=== PATIENT | female | born 1940 | race Caucasian/White ===

== ENCOUNTER 2018-12-11 19:21 | Observation (INO) | payer MEDICARE, OTHER ==
[~2018-12-11] VITALS: Ht 165.1 cm; Wt 90.2 kg
[2018-12-11] MEDS ORDERED: MELA5CAP2 PO ×2 (19:52→22:55)
[2018-12-11] MEDS ORDERED: AMIT25TA PO ×2 (19:52→22:55)
[2018-12-11] MEDS ORDERED: FOLI400T PO (19:52)
[2018-12-11] MEDS ORDERED: ATOR40TA75 PO ×2 (19:52→22:55)
[2018-12-11] MEDS ORDERED: CVS400CA PO (19:52)
[2018-12-11] MEDS ORDERED: B-122500 PO (19:52)
[2018-12-11] MEDS ORDERED: VESI5TAB2 PO ×2 (19:52→22:55)
[2018-12-11] MEDS ORDERED: BRIL90TA PO ×2 (19:52)
[2018-12-11] MEDS ORDERED: ALLO100T PO ×2 (19:52→22:55)
[2018-12-11] MEDS ORDERED: GINK1CAP PO (19:52)
[2018-12-11] MEDS ORDERED: TOPR50TA PO (19:52)
[2018-12-11] MEDS ORDERED: ASPI81CH33 PO (19:52)
[2018-12-11] MEDS ORDERED: TORS10TA3 PO (19:52)
[2018-12-11 20:05] LABS: BASO % 0.4 % (0.0-1.0); EOS # 0.4 10^3/uL (0.0-0.50); EOS % 5.6 % (0.0-3.0); HEMATOCRIT 35.8 % (36.0-47.0); LYMPH # 1.3 10^3/uL (1.5-4.5); LYMPH % 17.9 % (24.0-44.0); MEAN CORPUSCULAR HEMOGLOBIN 34.2 pg (27.0-33.0); MEAN CORPUSCULAR HGB CONC 33.5 g/dl (32.0-36.5); MONO # 0.7 10^3/uL (0.0-0.8); MONO % 10.4 % (0.0-5.0); NEUTROPHILS # 4.6 10^3/uL (1.8-7.7); PLATELET COUNT, AUTOMATED 203 10^3/uL (150-450); RED BLOOD COUNT 3.51 10^6/uL (4.00-5.40); WHITE BLOOD COUNT 7.1 10^3/uL (4.0-10.0)
[2018-12-11] MEDS ORDERED: ASPIRIN 81 MG CHEW TABLET PO ONE (20:15)
[2018-12-11] MEDS ORDERED: METOPROLOL SUCC (TopROL XL) 50MG **XL** TAB PO ONE (20:15)
[2018-12-11 20:21] LABS: INR 0.92; PROTHROMBIN TIME 12.1 SECONDS (11.8-14.0)
[2018-12-11 20:47] LABS: ALBUMIN 3.4 GM/DL (3.2-5.2); ALT/SGPT 22 U/L (12-78); BILIRUBIN,TOTAL 0.3 MG/DL (0.2-1.0); BLOOD UREA NITROGEN 26 MG/DL (7-18); CARBON DIOXIDE LEVEL 31 MEQ/L (21-32); CHLORIDE LEVEL 100 MEQ/L (98-107); CK-MB VALUE MASS 1.2 NG/ML (<3.6); CPK CREATINE PHOSPHOKINASE 70 U/L (26-192); CREATININE FOR GFR 1.82 MG/DL (0.55-1.30); GLOMERULAR FILTRATION RATE 28.7 (>39); GLUCOSE, FASTING 99 MG/DL (70-100); LIPASE 120 U/L (73-393); MB/CK RELATIVE INDEX 1.71 (< OR =4); POTASSIUM SERUM 4.4 MEQ/L (3.5-5.1); SODIUM LEVEL 138 MEQ/L (136-145); TOTAL PROTEIN 6.5 GM/DL (6.4-8.2); TROPONIN I < 0.02 NG/ML (< 0.10)
[2018-12-11] MEDS ORDERED: ALLOPURINOL 100 MG TAB PO SCH (21:00)
[2018-12-11] MEDS ORDERED: SOLIFENACIN 5 MG TAB PO SCH (21:00)
[2018-12-11] MEDS ORDERED: AMITRIPTYLINE 25 MG TAB PO SCH (21:00)
[2018-12-11 21:03] LABS: D-DIMER QUANT 617.19 ng/ml (<500)
[2018-12-11] MEDS ORDERED: hydrALAZINE INJ 20 MG/ML VIAL IV ONE (22:15)
--- NOTE | 2018-12-11 22:27 | HPEPDOC ---
[facility] Medical History & Physical Date of Admission Dec 11, 2018 Date of Service: Dec 11, 2018 Other Provider PCP & Sensitizer are in [place] Attending Physician: MACHELLE ROBERTS MD History and Physical TIME OF SERVICE 10:50 PM CHIEF COMPLAINT not feeling well HISTORY OF PRESENT ILLNESS Ms. Headley is a 78-year-old female who presents with complaints of feeling well for "quite a while". Specifically, she has been having nonradiating mid-chest pressure that is worse with lying down and better with standing up for a while. Associated symptoms include jaw pain and shoulder pain. Last night she noticed her blood pressure was very high and she had problems sleeping. Whenever she tried to lie down flat, she felt like she was suffocating. She takes metoprolol instead of nitroglycerin whenever she has chest pain; her fence laborer instructed her to do this rather than take nitro because it gave her headaches. Today she came in evaluation because she developed a headache, after taking her medications at 11 PM. She denies having lower extremity edema. The symptoms she has today are different from when she had her heart attack. REVIEW OF SYSTEMS: 12 point review of systems negative except as listed in HPI PAST MEDICAL/PAST SURGICAL HISTORY: 1. Chronic Hypertension 2 Chronic CAD is post stent placement 3 CKD stage unknown. 4. Pacemaker placement for bradycardia. 5 Status post appendectomy 6 Status post left knee arthroscopic surgery SOCIAL HISTORY: Quit smoking Resides in [place] and is visiting family and friends in town FAMILY HISTORY: CVA ALLERGIES: Please see below. HOME MEDICATIONS: Please see below. PHYSICAL EXAMINATION: VITAL SIGNS: Temperature 98.6, pulse 81, respiratory 20, blood pressure 198/86, pulse oximetry 98% on room air GENERAL APPEARANCE: Obese, well-developed, not in apparent distress HEENT: Normocephalic, atraumatic, mucous members moist and pink CARDIOVASCULAR: Regular rate and rhythm, no murmurs, rubs or gallops, radial p ulses are intact, external ears are warm and well perfused, there is no lower extremity edema LUNGS: Clear consultation bilaterally on room air. There is no cough ABDOMEN: Positive bowel sounds, abdomen is soft and nontender on palpation. MUSCULOSKELETAL: Range of motion is intact in all 4 extremities NEUROLOGICAL: Cranial nerves 2-12 are grossly intact. Speech is not dysarthric PSYCHIATRIC: Alert and oriented to person, place and time, able to understand and follow commands LABORATORY DATA: CBC is unremarkable. Chemistry is remarkable for a BUN of 26, creatinine 1.2, and GFR of 28 D-dimer 617 IMAGING: Chest x-ray final read is pending, but there is mild congestion of the lung bases and a pacemaker in place MICROBIOLOGY: Please see below. ASSESSMENT: Ms. Headley is a 78-year-old [place] resident with a past medical history of chronic CAD, hypertension, CKD, and pacemaker placement for bradycardia who is admitted for evaluation of chest pain likely secondary to uncontrolled hy pertension. PLAN: 1. Chest pain Likely due to hypertensive urgency. EKG shows ventricular paced rhythm Troponin within normal limits. She received Aspirin in he ED Plan: Admit to GMS/telemetry / ASA, Statin + Acetaminophen & Nitro PRN for chest pain / follow-up 2 more troponins, BNP, Echo lipid panel 2. Hypertensive urgency. Plan: resume home meds plus IV pressor 5 mg every 12 hours for systolic blood pressure greater than 160 3. Elevated d-dimer Age-adjusted d-dimer is 10 x age, which is 771 for this lady Plan: No intervention necessary 4. KYLIE versus CKD Plan: 500ml bolus /Follow-up Ulytes for FENa/FEUrea & BMP in the morning avoid nephrotoxins 5. Chronic CAD Plan: resume home meds DVT prophylaxis with SCDs Disposition pending clinical course Laboratory Data CBC/BMP Laboratory Tests 12/11/18 19:58 Red Blood Count 3.51 L, Mean Corpuscular Volume 102.0 H, Mean Corpuscular Hemoglobin 34.2 H, Mean Corpuscular Hemoglobin Concent 33.5, Red Cell Dis tribution Width 14.3, Neutrophils (%) (Auto) 65.0, Lymphocytes (%) (Auto) 17.9 L, Monocytes (%) (Auto) 10.4 H, Eosinophils (%) (Auto) 5.6 H, Basophils (%) (Auto) 0.4, Neutrophils # (Auto) 4.6, Lymphocytes # (Auto) 1.3 L, Monocytes # (Auto) 0.7, Eosinophils # (Auto) 0.4, Basophils # (Auto) 0.0, Calcium Level 9.0, Aspartate Amino Transf (AST/SGOT) 19, Alanine Aminotransferase (ALT/SGPT) 22, Total Creatine Kinase 70, Alkaline Phosphatase 86, Total Bilirubin 0.3, Total Protein 6.5, Albumin 3.4 Home Medications Scheduled Allopurinol (Allopurinol) 100 Mg Tablet, 100 MG PO QHS Amitriptyline HCl (Amitriptyline HCl) 25 Mg Tablet, 25 MG PO QHS Aspirin (Aspirin EC) 81 Mg Tablet.dr, 81 MG PO DAILY Atorvastatin Calcium (Atorvastatin Calcium) 40 Mg Tablet, 40 MG PO QHS Melatonin (Melatonin) 5 Mg Capsule, 5 MG PO QHS Metoprolol Succinate (Metoprolol Succinate) 50 Mg Tab.er.24h, 50 MG PO QHS PATIENT STATES CAN TAKE SECOND DOSE DURING NIGHT IF BP IS HIGH Metoprolol Succinate (Metoprolol Succinate) 25 Mg Tab.er.24h, 25 MG PO BID Solifenacin Succinate (Vesicare) 5 Mg Tablet, 5 MG PO QHS Ticagrelor Base (Brilinta) 90 Mg Tablet, 90 MG PO BID Torsemide (Torsemide) 20 Mg Tablet, 20 MG PO DAILY Scheduled PRN Lidocaine (Lidocaine) 5% Adh..patch, 1 PATCH TOP DAILY PRN for PAIN USES ON RIGHT HIP NEEDED FOR PAIN Allergies Coded Allergies: codeine (Verified Allergy, Unknown, 12/11/18) A-FIB/CHADSVASC A-FIB History Current/History of A-Fib/PAF?: No Current PO Anticoag Therapy: No MACHELLE ROBERTS MD Dec 11, 2018 22:27
[2018-12-11] MEDS ORDERED: ACETAMINOPHEN 500 MG TAB PO PRN (22:30)
[2018-12-11] MEDS ORDERED: METOPROLOL 5 MG/5 ML VIAL IV PRN (22:30)
[2018-12-11] MEDS ORDERED: NS 500 ML IV ONE (22:30)
[2018-12-11] MEDS ORDERED: LIDO5TD TOP (22:55)
[2018-12-11] MEDS ORDERED: TORS20TA2 PO (22:55)
[2018-12-11] MEDS ORDERED: ASPI-161 PO (22:55)
[2018-12-11] MEDS ORDERED: METO1TAB7 PO (22:55)
[2018-12-12 00:07] LABS: CHOLESTEROL LEVEL 141 MG/DL (<200); CHOLESTEROL RISK RATIO 2.203 (<5); HDL CHOLESTEROL 64 MG/DL (>40); LDL CHOLESTEROL 28 MG/DL (<100); NON-HDL-C 77 MG/DL; NT-PRO BNP 4834 PG/ML (<450); TRIGLYCERIDES LEVEL 243 MG/DL (<150)
[2018-12-12 01:22] VITALS: BP 146/66
[2018-12-12] MEDS: NITROGLYCERIN 0.4 MG SUBL TABLET SL PRN ×2 (01:23→02:24)
[2018-12-12 01:25] VITALS: BP 148/80; PULSE 69
[2018-12-12 01:41] LABS: APPEARANCE, URINE CLEAR (CLEAR); BACTERIA, URINE AUTO 1+ (NEGATIVE); BILIRUBIN, URINE AUTO NEGATIVE (NEGATIVE); BLOOD, URINE BLOOD NEGATIVE (NEGATIVE); COLOR, URINE YELLOW (YELLOW); GLUCOSE, URINE (UA) AUTO NEGATIVE (NEGATIVE); KETONE, URINE AUTO NEGATIVE (NEGATIVE); LEUKOCYTE ESTERASE, URINE AUTO TRACE (NEGATIVE); NITRITE, URINE AUTO NEGATIVE (NEGATIVE); PROTEIN, URINE AUTO NEGATIVE (NEGATIVE); RBC, URINE AUTO 2 /HPF (0-3); SPECIFIC GRAVITY URINE AUTO 1.008 (1.002-1.035); SQUAMOUS EPITHELIAL CELL UR AU 1 /HPF (0-6); UROBILINOGEN, URINE AUTO 0.2 mg/dL (0.0-2.0); WBC, URINE AUTO 3 /HPF (0-3)
[2018-12-12 02:05] LABS: CREATININE,RANDOM URINE 61.5 MG/DL; SODIUM,RANDOM URINE 39 MEQ/L; UREA NITROGEN RANDOM URINE 377 MG/DL
[2018-12-12 02:24] VITALS: BP 144/76
[2018-12-12] MEDS ORDERED: LIDOCAINE 5% (LIDODERM) PATCH TOP PRN (03:15)
[2018-12-12 05:37] LABS: HEMATOCRIT 35.2 % (36.0-47.0); HEMOGLOBIN 11.6 g/dl (12.0-15.5); MEAN CORPUSCULAR HEMOGLOBIN 33.8 pg (27.0-33.0); MEAN CORPUSCULAR VOLUME 102.6 fl (80.0-96.0); PLATELET COUNT, AUTOMATED 181 10^3/uL (150-450); RED BLOOD COUNT 3.43 10^6/uL (4.00-5.40); WHITE BLOOD COUNT 6.9 10^3/uL (4.0-10.0)
[2018-12-12 05:57] LABS: BLOOD UREA NITROGEN 28 MG/DL (7-18); CALCIUM LEVEL 9.3 MG/DL (8.8-10.2); CARBON DIOXIDE LEVEL 27 MEQ/L (21-32); CHLORIDE LEVEL 105 MEQ/L (98-107); CREATININE FOR GFR 1.58 MG/DL (0.55-1.30); GLOMERULAR FILTRATION RATE 33.8 (>39); GLUCOSE, FASTING 114 MG/DL (70-100); POTASSIUM SERUM 3.8 MEQ/L (3.5-5.1); SODIUM LEVEL 138 MEQ/L (136-145); TROPONIN I < 0.02 NG/ML (< 0.10)
--- NOTE | 2018-12-12 07:08 | ECGEPIP ---
[facility] - ED Test Date: 2018-12-11 Pat Name: BEAR LYNN Department: Room: [place] [address] Gender: Female Instructor Bridge: MIHIR : 1940 Requested By: EZEQUIEL Robert Order Number: [id number] Reading MD: Rehan Power Measurements Intervals [place] Rate: 67 P: 50 CA: 270 QRS: -64 QRSD: 171 T: 110 QT: 445 QTc: 472 Interpretive Statements ELECTRONIC VENTRICULAR PACEMAKER NO PRIORS FOR COMPARISON Electronically Signed on 12-12-2018 7:08:20 EDT by Rehan Power
[2018-12-12] MEDS ORDERED: SLF 3 ML SYR IV PRN (08:15)
--- NOTE | 2018-12-12 08:28 | REP ---
Portable chest x-ray: Single view. History: Chest pain. No comparison study. Findings: A bipolar pacemaker is seen in the right heart via the left side. EKG electrodes are noted. There is no evidence of pleural effusion or pulmonary edema. Pulmonary vasculature is not increased. Heart is not felt to be enlarged. Impression: Pacemaker in place. Otherwise no acute disease. Electronically Signed by Guanakito Nick MD 12/12/2018 08:20 A
[2018-12-12 08:44] VITALS: BP 150/80
[2018-12-12] MEDS ORDERED: TICAGRELOR 90 MG TABLET (BRILINTA) PO SCH (09:00)
[2018-12-12] MEDS ORDERED: ATORVASTATIN 20 MG TAB PO SCH (09:00)
[2018-12-12] MEDS ORDERED: ASPIRIN 81 MG CHEW TABLET PO SCH (09:00)
[2018-12-12] MEDS ORDERED: METOPROLOL SUCC *XL* 25MG TAB (TopROL *XL*) PO SCH (09:00)
[2018-12-12] MEDS ORDERED: TORSEMIDE 20 MG TAB PO SCH (09:00)
[2018-12-12] MEDS ORDERED: METO1TAB32 PO (11:13)
--- NOTE | 2018-12-12 13:29 | DS.PDOC ---
Discharge Summary General Date of Admission Dec 11, 2018 at 19:22 Date of Discharge 12/12/2018 Attending Physician: BART GARCIA MD Discharge Summary PROCEDURES PERFORMED DURING STAY: None. ADMITTING DIAGNOSES: 1. Chest pain Hypertensive emergency. DISCHARGE DIAGNOSES: 1. Chest pain ,Hypertensive emergency, hypertension, permanent pacemaker placement. COMPLICATIONS/CHIEF COMPLAINT: Hypertensive Urgency. HISTORY OF PRESENT ILLNESS: Ms. Headley is a 78-year-old female who presents with complaints of feeling well for "quite a while". Specifically, she has been having mid nonradiating chest pressure that is worse with lying down and better with standing up for a while. Associated symptoms include jaw pain and shoulder pain. Last night she noticed her blood pressure is very high and she had problems sleeping. Whenever she tried to lie down flat. She felt like she was suffocating. She takes metoprolol instead of nitroglycerin whenever she has chest pain per her wool brusher's instructions. Today she came in evaluation because she developed a headache, after her medications at 11 PM. Other system symptoms include the sensation of feeling bloated. She denies having lower extremity edema reports that these symptoms are different from when she had her heart attack.. HOSPITAL COURSE: [Patient was admitted with the diagnosis of chest pain, most likely secondary to hypertensive emergency. Patient was started on metoprolol IV and he responded very well. Patient was started on metoprolol 25 mg by mouth twice a day on discharge. Patient's blood pressure is at her baseline between 140 and 150 systolic pressure,. Troponins 2 negative. Further workup,She'll get it done with her wool brusher at [place] DISCHARGE MEDICATIONS: Please see below. ALLERGIES: Please see below. PHYSICAL EXAMINATION ON DISCHARGE: VITAL SIGNS: Please see below. GENERAL: Within normal limits HEENT: PERRLA Regular muscles intact NECK: Supple CARDIOVASCULAR EXAMINATION: S1, S2, regular RESPIRATORY EXAMINATION: Clear to A&P ABDOMINAL EXAMINATION: , Soft, nontender, bowel sound present EXTREMITIES: No clubbing, Cyanosis, edema SKIN: Normal NEUROLOGICAL EXAMINATION: . No focal motor or sensory deficit PSYCHIATRIC EXAMINATION: Normal LABORATORY DATA: Please see below. IMAGING: Chest x-ray is normal PROGNOSIS: Good ACTIVITY: As tolerated. DIET: As tolerated DISCHARGE PLAN: Hollow with your wool brusher at [place] in one week DISPOSITION: 01 Home, Self-Care. DISCHARGE INSTRUCTIONS: 1. As per discharge instructions. ITEMS TO FOLLOWUP ON ON OUTPATIENT: 1. With cardiology in one week. DISCHARGE CONDITION: Stable. TIME SPENT ON DISCHARGE: 25 minutes. Vital Signs/I&Os Vital Signs Date Time Temp Pulse Resp B/P (MAP) Pulse Ox O2 Delivery O2 Flow Rate FiO2 12/12/18 08:44 97.4 61 17 150/80 (103) 96 12/12/18 00:36 Room Air I&O- Last 24 Hours up to 6 AM 12/12/18 06:00 Intake Total 860 ml Output Total 450 ml Balance 410 ml Laboratory Data Labs 24H Laboratory Tests 2 12/11/18 19:58: Immature Granulocyte % (Auto) 0.7, White Blood Count 7.1, Red Blood Count 3.51L, Hemoglobin 12.0, Hematocrit 35.8L, Mean Corpuscular Volume 102.0H, Mean Corpuscular Hemoglobin 34.2H, Mean Corpuscular Hemoglobin Concent 33.5, Red Cell Distribution Width 14.3, Platelet Count 203, Neutrophils (%) (Auto) 65.0, Lymphocytes (%) (Auto) 17.9L, Monocytes (%) (Auto) 10.4H, Eosinophils (%) (Auto) 5.6H, Basophils (%) (Auto) 0.4, Neutrophils # (Auto) 4.6, Lymphocytes # (Auto) 1.3L, Monocytes # (Auto) 0.7, Eosinophils # (Auto) 0.4, Basophils # (Auto) 0.0, Nucleated Red Blood Cells % (auto) 0.0, Prothrombin Time 12.1, Prothromb Time In ternational Ratio 0.92, D-Dimer, Quantitative 617.19H, Anion Gap 7L, Glomerular Filtration Rate 28.7L, Blood Urea Nitrogen 26H, Creatinine 1.82H, Sodium Level 138, Potassium Level 4.4, Chloride Level 100, Carbon Dioxide Level 31, Calcium Level 9.0, Aspartate Amino Transf (AST/SGOT) 19, Alanine Aminotransferase (ALT/SGPT) 22, Total Creatine Kinase 70, Alkaline Phosphatase 86, Total Bilirubin 0.3, Triglycerides Level 243H, LDL Cholesterol 28, Total Protein 6.5, Albumin 3.4, Creatine Kinase MB 1.2, Creatine Kinase MB Relative Index 1.71, Troponin I < 0.02, CZ-Vja-H-Type Natriuretic Peptide 4834H, Albumin/Globulin Ratio 1.10, Total Cholesterol 141, Non-HDL Cholesterol (LDL + VLDL) 77, Total HDL Cholesterol 64, Cholesterol/HDL Ratio 2.203, Lipase 120 12/12/18 05:24: Nucleated Red Blood Cells % (auto) 0.0, Anion Gap 6L, Glomerular Filtration Rate 33.8L, Blood Urea Nitrogen 28H, Creatinine 1.58H, Sodium Level 138, Potassium Level 3.8, Chloride Level 105, Carbon Dioxide Level 27, Calcium Level 9.3, Troponin I < 0.02 CBC/BMP Laboratory Tests 12/11/18 19:58 Red Blood Count 3.51 L, Mean Corpuscular Volume 102.0 H, Mean Corpuscular Hemoglobin 34.2 H, Mean Corpuscular Hemoglobin Concent 33.5, Red Cell Distribution Width 14.3, Neutrophils (%) (Auto) 65.0, Lymphocytes (%) (Auto) 17.9 L, Monocytes (%) (Auto) 10.4 H, Eosinophils (%) (Auto) 5.6 H, Basophils (%) (Auto) 0.4, Neutrophils # (Auto) 4.6, Lymphocytes # (Auto) 1.3 L, Monocytes # (Auto) 0.7, Eosinophils # (Auto) 0.4, Basophils # (Auto) 0.0, Calcium Level 9.0, Aspartate Amino Transf (AST/SGOT) 19, Alanine Aminotransferase (ALT/SGPT) 22, Total Creatine Kinase 70, Alkaline Phosphatase 86, Total Bilirubin 0.3, Triglycerides Level 243 H, LDL Cholesterol 28, Total Protein 6.5, Albumin 3.4 12/12/18 05:24 Red Blood Count 3.43 L, Mean Corpuscular Volume 102.6 H, Mean Corpuscular Hemoglobin 33.8 H, Mean Corpuscular Hemoglobin Concent 33.0, Red Cell Distribution Width 14.2, Calcium Level 9.3 Discharge Medications Scheduled Allopurinol (Allopurinol) 100 Mg Tablet, 100 MG PO QHS, (Reported) Amitriptyline HCl (Amitriptyline HCl) 25 Mg Tablet, 25 MG PO QHS, (Reported) Aspirin (Aspirin EC) 81 Mg Tablet.dr, 81 MG PO DAILY, (Reported) Atorvastatin Calcium (Atorvastatin Calcium) 40 Mg Tablet, 40 MG PO QHS, (Reported) Melatonin (Melatonin) 5 Mg Capsule, 5 MG PO QHS, (Reported) Metoprolol Succinate (Metoprolol Succinate) 50 Mg Tab.er.24h, 50 MG PO QHS, (Rep orted) PATIENT STATES CAN TAKE SECOND DOSE DURING NIGHT IF BP IS HIGH Metoprolol Succinate (Metoprolol Succinate) 25 Mg Tab.er.24h, 25 MG PO BID Solifenacin Succinate (Vesicare) 5 Mg Tablet, 5 MG PO QHS, (Reported) Ticagrelor Base (Brilinta) 90 Mg Tablet, 90 MG PO BID, (Reported) Torsemide (Torsemide) 20 Mg Tablet, 20 MG PO DAILY, (Reported) Scheduled PRN Lidocaine (Lidocaine) 5% Adh..patch, 1 PATCH TOP DAILY PRN for PAIN, (Reported) USES ON RIGHT HIP NEEDED FOR PAIN Allergies Coded Allergies: codeine (Verified Allergy, Unknown, 12/11/18) BART GARCIA MD Dec 12, 2018 13:29
[2018-12-12] MEDS ORDERED: SLF 3 ML SYR IV SCH (14:00)
== END 2018-12-12 12:08 | disposition home or self-care (01) ==
LOC: M ED 19:21 → M ED INP 19:22 → M PCU 12-12 01:05
PROVIDERS: ADMIT Internal Medicine; ATTEND Internal Medicine
DX: I16.0 Hypertensive urgency (principal); R07.89 Other chest pain; I10 Essential (primary) hypertension; Z79.82 Long term (current) use of aspirin; Z79.899 Other long term (current) drug therapy; I25.10 Atherosclerotic heart disease of native coronary artery without angina pectoris; Z95.0 Presence of cardiac pacemaker; Z95.5 Presence of coronary angioplasty implant and graft; N18.9 Chronic kidney disease, unspecified; Z87.891 Personal history of nicotine dependence; Z88.5 Allergy status to narcotic agent
CPT/HCPCS: 36415; 71045; 80048; 80053; 80061; 81001; 82550; 82553; 82570; 83690; 83880; 84300; 84484; 84540; 85025; 85027; 85379; 85610; 93005; 93041; 94760; 96360; 96361; 96374; 99285; G0378